=== PATIENT | male | born 1945 | race Caucasian/White ===

== ENCOUNTER → 2024-04-04 11:44 | Outpatient (REF) | payer MEDICARE, OTHER, SELFPAY ==
[2024-04-04 15:34] LABS: % Basophils 0.6 % (0-2); % Eosinophils 3.4 % (0-6); % Immature Granulocytes 0.4 % (0-0.5); % Lymphocytes 13.7 % (20.5-51.1); % Monocytes 7.9 % (1.7-9.3); Absolute Basophils 0.1 10^3/uL (0-0.2); Absolute Eosinophils 0.4 10^3/uL (0-0.7); Absolute Immature Granulocytes 0.1 10^3/uL (0-0.05); Absolute Lymphocytes 1.5 10^3/uL (1.2-3.4); Absolute Monocytes 0.9 10^3/uL (0.1-0.6); Absolute Neutrophils 8.3 10^3/uL (1.4-6.5); Hematocrit 42.6 % (39.0-52.0); Hemoglobin 13.8 g/dL (13.0-18.0); Mean Corp Hgb Conc. 32.4 g/dL (33.0-37.0); Mean Corpuscular Hgb 28.2 pg (27.0-31.0); Mean Corpuscular Volume 86.9 fL (80.0-94.0); Mean Platelet Volume 10.6 fL (7.4-10.4); Nucleated Red Blood Cells % 0 % (-); Platelet Count 305 10^3/uL (130-400); Red Cell Dist. Width 14.6 % (11.5-14.5); White Blood Cell Count 11.2 10^3/uL (4.8-10.8)
[2024-04-04 15:41] LABS: INR 1.16; PT 14.8 Sec (11.4-14.6)
[2024-04-04 15:42] LABS: APTT 35.1 Sec (23.4-35.0)
== END ==
LOC: HWLAB 11:44
PROVIDERS: ATTENDING PHYSICIAN Internal Medicine Critical Care Medicine; FAMILY PHYSICIAN Family Medicine
DX: R91.8 Other nonspecific abnormal finding of lung field (principal); Z01.812 Encounter for preprocedural laboratory examination; I21.4 Non-ST elevation (NSTEMI) myocardial infarction
CPT/HCPCS: 36415; 71250; 85025; 85610; 85730

== ENCOUNTER 2024-04-17 06:34 | Day surgery (SDC) | payer MEDICARE, OTHER, SELFPAY ==
[2024-04-17] VITALS (8 sets, daily range): BP systolic 106–120; BP diastolic 35–78; BMI 36.9
[2024-04-17 07:08] LABS: Glucose - Point of Care 150 mg/dl (70-99)
[2024-04-17] MEDS: DUONEB 3 ML INH (07:33)
[2024-04-17 09:26] LABS: Glucose - Point of Care 146 mg/dl (70-99)
== END 2024-04-17 11:05 | disposition home or self-care (01) ==
LOC: SDS 06:34
PROVIDERS: ATTENDING PHYSICIAN Internal Medicine Critical Care Medicine; PRIMARYCARE PHYSICIAN Family Medicine
DX: D38.1 Neoplasm of uncertain behavior of trachea, bronchus and lung (principal); R91.8 Other nonspecific abnormal finding of lung field; J98.11 Atelectasis; J44.9 Chronic obstructive pulmonary disease, unspecified; J90 Pleural effusion, not elsewhere classified; R09.02 Hypoxemia; Z87.891 Personal history of nicotine dependence; Z77.090 Contact with and (suspected) exposure to asbestos
CPT/HCPCS: 31652; 31623; 31625; 31627; 31654; 31624; 88172; 88173; 88305; 88332; 71045; 76000; 82962; 87015; 87070; 87102; 87116; 87205; 88112; 88177; 88333; 94640; C1887

== ENCOUNTER → 2025-05-09 10:20 | Outpatient (REF) | payer MEDICARE, OTHER, SELFPAY | LOC: RAD 10:20 | PROVIDERS: ATTENDING PHYSICIAN Internal Medicine Critical Care Medicine; FAMILY PHYSICIAN Family Medicine | DX: J90 Pleural effusion, not elsewhere classified (principal) | CPT/HCPCS: 71046 ==